=== PATIENT | female | born 1980 | race Two or more races ===

== ENCOUNTER 2017-01-22 09:15 | Day surgery (SDC) | payer OTHER ==
[~2017-01-22] VITALS: Ht 170.2 cm; Wt 73.5 kg
[~2017-01-22 09:15] MED LIST: CARI350T14 PO; DIPH50CA26 PO; IBUP200T48 PO; IBUP400T PO; MULT80TA PO; NO MEDS PER PT; OMEG92TA PO; OXYC-302 PO; PREN-3 PO; VALG450T PO
[2017-01-22] MEDS ORDERED: LACTATED RINGERS 1,000 ML IV SCH (10:10)
[2017-01-22 10:33] VITALS: BP 106/70
[2017-01-22] MEDS ORDERED: MISOPROSTOL 200 MCG TABLET ONE (10:55)
[2017-01-22] MEDS ORDERED: METHYLERGONOVINE 0.2 MG/ML IM ONE (10:55)
[2017-01-22] MEDS ORDERED: OXYTOCIN 10 UNITS/ML, 1ML ONE (10:55)
[2017-01-22] MEDS ORDERED: SCOPOLAMINE PATCH, 1.5MG PATCH.TD72 TD ONE (10:57)
[2017-01-22] MEDS ORDERED: MIDAZOLAM 1 MG/ML, 2ML ONE (11:15)
[2017-01-22] MEDS ORDERED: FENTANYL PF 250 MCG/5ML ONE (11:15)
[2017-01-22] MEDS ORDERED: DEXAMETHASONE 4 MG/ML, 1ML ONE (11:19)
[2017-01-22] MEDS ORDERED: PROPOFOL 10 MG/ML, 20ML ONE (11:19)
[2017-01-22] MEDS ORDERED: ONDANSETRON 2MG/ML, 2ML ONE (11:19)
[2017-01-22] MEDS ORDERED: FENTANYL PF 100 MCG/2ML IV PRN (12:00)
[2017-01-22] MEDS ORDERED: ONDANSETRON 2MG/ML, 2ML IVPush PRN (12:00)
[2017-01-22] MEDS ORDERED: MIDAZOLAM 1 MG/ML, 2ML IV PRN (12:00)
[2017-01-22] MEDS ORDERED: HYDROcodone/APAP 7.5-325MG/15ML UDC PO PRN (12:00)
[2017-01-22] MEDS ORDERED: HYDROmorphone 1 MG/ML, 1ML IV PRN (12:00)
[2017-01-22] MEDS ORDERED: OXYcodone 5 MG/5 ML ORAL.SOL UDC PO PRN (12:00)
[2017-01-22] MEDS ORDERED: ACETAMINOPHEN 325 MG TABLET PO PRN (12:00)
[2017-01-22] MEDS ORDERED: MEPERIDINE/PF 25MG/0.5ML IVPush PRN (12:00)
[2017-01-22] MEDS ORDERED: PROMETHAZINE 25 MG/ML, 1ML IV PRN (12:00)
[2017-01-22] MEDS ORDERED: ACETAMINOPHEN 650 MG/20.3 ML UDC ONE (12:03)
[2017-01-22] MEDS ORDERED: ACETAMINOPHEN 325 MG TABLET ONE (12:03)
== END 2017-01-22 13:15 | disposition home or self-care (01) ==
LOC: OUT 09:15
PROVIDERS: ATTEND Specialist
DX: O02.1 Missed abortion (principal); Z3A.01 Less than 8 weeks gestation of pregnancy; Z80.9 Family history of malignant neoplasm, unspecified
CPT/HCPCS: 36415; 59820; 85014; 85018; 86850; 86900; 88305; J1100; J2250; J2405; J2704; J3010; J7120; J2210; J2590

== ENCOUNTER 2017-07-15 00:41 | Observation (INO) | payer OTHER ==
[~2017-07-15] VITALS: Ht 170.2 cm; Wt 75.0 kg
[~2017-07-15 00:41] MED LIST changes: +IBUP-1221 PO; -IBUP400T PO
[2017-07-15 01:26] LABS: HEMOGLOBIN 12.6 g/dL (11.7-16.4); WHITE BLOOD COUNT 11.6 x10^3/uL (3.4-10)
[2017-07-15] MEDS ORDERED: LACTATED RINGERS 1,000 ML IVBOLUS ONE (01:30)
[2017-07-15 01:38] VITALS: BP 130/79
== END 2017-07-15 17:52 | disposition home or self-care (01) ==
LOC: LDOP 00:41 → EDIP 05:32 → LDIP 05:47
PROVIDERS: ADMIT Obstetrics & Gynecology; ATTEND Obstetrics & Gynecology
DX: O44.52 Low lying placenta with hemorrhage, second trimester (principal); O09.522 Supervision of elderly multigravida, second trimester; Z3A.20 20 weeks gestation of pregnancy
CPT/HCPCS: 36415; 59025; 76770; 76805; 81001; 85025; 86850; 86900; 96360; 96361; 99211; G0378; J7120; P9612; G0463

== ENCOUNTER 2017-09-29 15:27 | Outpatient (CLI) | payer OTHER ==
[~2017-09-29] VITALS: Ht 170.2 cm; Wt 78.6 kg
[~2017-09-29 15:27] MED LIST changes: -IBUP200T48 PO; +IBUP200T49 PO
== END 2017-09-29 18:30 | disposition home or self-care (01) ==
LOC: LDOP 15:27
PROVIDERS: ATTEND Obstetrics & Gynecology
DX: O09.523 Supervision of elderly multigravida, third trimester (principal); O36.8130 Decreased fetal movements, third trimester, not applicable or unspecified; Z3A.00 Weeks of gestation of pregnancy not specified
CPT/HCPCS: 59025; 76819; 99211; G0463

== ENCOUNTER 2017-11-23 06:21 | Inpatient (IN) | payer OTHER ==
[~2017-11-23] VITALS: Ht 170.2 cm; Wt 78.1 kg
[2017-11-23] MEDS ORDERED: OXYTOCIN 30U/ 0.9% NaCL 500ML 500 ML IV PRN (06:25)
[2017-11-23] MEDS ORDERED: D5%-LACTATED RINGERS 1,000 ML IV SCH (06:25)
[2017-11-23] MEDS ORDERED: OXYTOCIN 30U/ 0.9% NaCL 500ML 500 ML IV ONE (06:25)
[2017-11-23] MEDS ORDERED: FENTANYL PF 100 MCG/2ML IV PRN (06:30)
[2017-11-23] MEDS ORDERED: MISOPROSTOL 25 MCG TABLET VG PRN (06:30)
[2017-11-23] MEDS ORDERED: ONDANSETRON 2MG/ML, 2ML IVPush PRN (06:30)
[2017-11-23] MEDS ORDERED: FENTANYL PF 100 MCG/2ML IVPush PRN (06:30)
[2017-11-23] MEDS ORDERED: ALUMINUM/MAG/SIMETHICONE 30 ML UDC PO PRN (06:30)
[2017-11-23 06:34] VITALS: BP 125/75
[2017-11-23 06:54] LABS: BASOPHILS # (AUTO) 0.03 x10^3/uL (0-0.1); BASOPHILS % (AUTO) 1 % (0-1); EOSINOPHILS # (AUTO) 0.06 x10^3/uL (0-0.4); EOSINOPHILS % (AUTO) 1 % (1-7); LYMPHOCYTES # (AUTO) 2.12 x10^3/uL (1-3.4); LYMPHOCYTES % (AUTO) 29 % (22-44); MD NO; MEAN CORPUSCULAR HEMOGLOBIN 32.9 pg (27.0-34.8); MEAN CORPUSCULAR HGB CONC 34.6 g/dL (32.4-35.8); MEAN CORPUSCULAR VOLUME 95.1 fL (80-100); MEAN PLATELET VOLUME 8.8 fL (7.4-10.4); MONOCYTES # (AUTO) 0.48 x10^3/uL (0.2-0.8); MONOCYTES % (AUTO) 7 % (2-9); NEUTROPHILS # (AUTO) 4.59 x10^3/uL (1.8-6.8); NEUTROPHILS % (AUTO) 63 % (42-75); PLATELET COUNT 165 x10^3/uL (130-400); RED BLOOD COUNT 4.16 x10^6/uL (3.82-5.3); RED CELL DISTRIBUTION WIDTH 13.1 % (9.6-15.2)
[2017-11-23] MEDS: LACTATED RINGERS 1,000 ML IV SCH ×4 (06:57→19:28)
[2017-11-23] MEDS ORDERED: OXYTOCIN 30U/ 0.9% NaCL 500ML 500 ML ONE ×2 (07:00→22:01)
[2017-11-23] MEDS ORDERED: MISOPROSTOL 25 MCG TABLET ONE (07:00)
[2017-11-23] MEDS ORDERED: NEWBORN KIT ONE (07:30)
[2017-11-23] MEDS ORDERED: FENTANYL PF 100 MCG/2ML ONE (15:04)
[2017-11-23] MEDS ORDERED: FENTANYL/BUPIV./NS/PF 250 ML EPIDCONT SCH (18:33)
[2017-11-23] MEDS ORDERED: FENTANYL/BUPIV./NS/PF 250 ML EPIDCONT ONE (18:35)
[2017-11-23] MEDS ORDERED: BUPIVACAINE/PF 0.25% ONE (18:35)
[2017-11-23] MEDS ORDERED: EPHEDRINE 50 MG/ML, 1ML IVPush PRN (19:00)
[2017-11-23] MEDS ORDERED: LACTATED RINGERS 1,000 ML IVBOLUS PRN (19:00)
[2017-11-23] MEDS ORDERED: NALOXONE 0.4 MG/ML, 1ML IVPush PRN (19:00)
[2017-11-23] MEDS ORDERED: MISOPROSTOL 200 MCG TABLET ONE (21:47)
[2017-11-23] MEDS ORDERED: METHYLERGONOVINE 0.2 MG/ML IM ONE (21:50)
[2017-11-23] MEDS ORDERED: TRANEXAMIC ACID 1,500 MG in SODIUM CHLORIDE 0.9% 100 ML IV STA (21:54)
[2017-11-23] MEDS ORDERED: CEFAZOLIN PMX 1GM/50ML 50 ML ONE (21:54)
[2017-11-23] MEDS: CEFAZOLIN PMX 2GM/50ML 50 ML IVPB SCH (22:00)
[2017-11-23] MEDS ORDERED: PROMETHAZINE 25 MG/ML, 1ML ONE (22:43)
[2017-11-23 23:13] LABS: BASOPHILS # (AUTO) 0.05 x10^3/uL (0-0.1); BASOPHILS % (AUTO) 0 % (0-1); EOSINOPHILS # (AUTO) 0.03 x10^3/uL (0-0.4); EOSINOPHILS % (AUTO) 0 % (1-7); LYMPHOCYTES # (AUTO) 2.26 x10^3/uL (1-3.4); LYMPHOCYTES % (AUTO) 14 % (22-44); MD NO; MEAN CORPUSCULAR HEMOGLOBIN 32.1 pg (27.0-34.8); MEAN CORPUSCULAR HGB CONC 33.9 g/dL (32.4-35.8); MEAN CORPUSCULAR VOLUME 94.8 fL (80-100); MEAN PLATELET VOLUME 8.9 fL (7.4-10.4); MONOCYTES # (AUTO) 0.65 x10^3/uL (0.2-0.8); MONOCYTES % (AUTO) 4 % (2-9); NEUTROPHILS # (AUTO) 13.03 x10^3/uL (1.8-6.8); NEUTROPHILS % (AUTO) 81 % (42-75); PLATELET COUNT 148 x10^3/uL (130-400); RED BLOOD COUNT 3.72 x10^6/uL (3.82-5.3); RED CELL DISTRIBUTION WIDTH 12.9 % (9.6-15.2)
[2017-11-23] MEDS ORDERED: OXYTOCIN 30U/ 0.9% NaCL 500ML 500 ML IV SCH (23:38)
[2017-11-23 23:41] LABS: PROTIME 9.7 Seconds (9.6-11.5)
[2017-11-23 23:44] LABS: D-DIMER (DIC) 10.27 ug/mlFEU (0.00-0.52)
[2017-11-24] MEDS ORDERED: HYDROcodone/APAP 5/325 TABLET PO PRN ×2
[2017-11-24] MEDS ORDERED: MISOPROSTOL 200 MCG TABLET PR ONE
[2017-11-24] MEDS ORDERED: ACETAMINOPHEN 325 MG TABLET PO PRN
[2017-11-24] MEDS ORDERED: PROMETHAZINE 25 MG/ML, 1ML IM ONE
[2017-11-24] MEDS ORDERED: OXYcodone/APAP 5/325MG TABLET PO PRN ×2
[2017-11-24] MEDS ORDERED: OXYcodone IR 5MG TABLET PO PRN
[2017-11-24] MEDS ORDERED: ONDANSETRON 2MG/ML, 2ML IV PRN
[2017-11-24] MEDS: LACTATED RINGERS 1,000 ML IV SCH (00:44)
[2017-11-24] MEDS ORDERED: IBUPROFEN 600 MG TABLET ONE (01:59)
[2017-11-24] MEDS: IBUPROFEN 600 MG TABLET PO PRN ×3 (02:01→16:55)
[2017-11-24] MEDS ORDERED: DIPHENOXYLATE/ATROPINE TABLET ONE (02:12)
[2017-11-24] MEDS ORDERED: DIPHENOXYLATE/ATROPINE TABLET PO PRN (02:30)
[2017-11-24 02:54] LABS: MEAN CORPUSCULAR HEMOGLOBIN 32.3 pg (27.0-34.8); MEAN CORPUSCULAR HGB CONC 34.2 g/dL (32.4-35.8); MEAN CORPUSCULAR VOLUME 94.3 fL (80-100); MEAN PLATELET VOLUME 8.6 fL (7.4-10.4); PLATELET COUNT 151 x10^3/uL (130-400); RED BLOOD COUNT 3.57 x10^6/uL (3.82-5.3); RED CELL DISTRIBUTION WIDTH 13.3 % (9.6-15.2)
[2017-11-24 03:17] LABS: BASOPHILS # (AUTO) 0.02 x10^3/uL (0-0.1); BASOPHILS % (AUTO) 0 % (0-1); EOSINOPHILS # (AUTO) 0.01 x10^3/uL (0-0.4); EOSINOPHILS % (AUTO) 0 % (1-7); LYMPHOCYTES # (AUTO) 0.94 x10^3/uL (1-3.4); LYMPHOCYTES % (AUTO) 5 % (22-44); MD SCAN; MONOCYTES # (AUTO) 0.55 x10^3/uL (0.2-0.8); MONOCYTES % (AUTO) 3 % (2-9); NEUTROPHILS # (AUTO) 18.05 x10^3/uL (1.8-6.8); NEUTROPHILS % (AUTO) 92 % (42-75)
[2017-11-24] MEDS ORDERED: CARBOPROST TROMETHAMINE 250 MCG/ML, 1ML IM ONE ×2 (04:00)
[2017-11-24] MEDS ORDERED: METHYLERGONOVINE 0.2 MG/ML IM ONE ×2 (04:00)
[2017-11-24 07:56] VITALS: BP 125/81
[2017-11-24] MEDS: DOCUSATE 100 MG CAPSULE PO PRN (09:27)
[2017-11-24] MEDS: PRENATAL VIT/IRON/FA 1 EACH TABLET PO SCH (09:28)
[2017-11-24] MEDS: OXYcodone IR 5MG TABLET PO PRN ×2 (09:33→16:56)
[2017-11-24] MEDS: CEFAZOLIN PMX 2GM/50ML 50 ML IVPB SCH (09:45)
[2017-11-24 13:00] VITALS: BP 104/51
[2017-11-24 20:24] VITALS: BP 91/54
[2017-11-25] MEDS: IBUPROFEN 600 MG TABLET PO PRN ×2 (00:54→07:47)
[2017-11-25] MEDS: DOCUSATE 100 MG CAPSULE PO PRN ×2 (00:55→07:47)
[2017-11-25] MEDS: OXYcodone IR 5MG TABLET PO PRN ×2 (00:55→05:49)
[2017-11-25 06:08] LABS: MEAN CORPUSCULAR HEMOGLOBIN 32.5 pg (27.0-34.8); MEAN CORPUSCULAR HGB CONC 33.7 g/dL (32.4-35.8); MEAN CORPUSCULAR VOLUME 96.6 fL (80-100); MEAN PLATELET VOLUME 8.4 fL (7.4-10.4); PLATELET COUNT 126 x10^3/uL (130-400); RED BLOOD COUNT 2.33 x10^6/uL (3.82-5.3); RED CELL DISTRIBUTION WIDTH 13.4 % (9.6-15.2)
[2017-11-25 06:20] VITALS: BP 115/68
[2017-11-25 06:43] LABS: BASOPHILS # (AUTO) 0.02 x10^3/uL (0-0.1); BASOPHILS % (AUTO) 0 % (0-1); EOSINOPHILS # (AUTO) 0.08 x10^3/uL (0-0.4); EOSINOPHILS % (AUTO) 1 % (1-7); LYMPHOCYTES # (AUTO) 2.17 x10^3/uL (1-3.4); LYMPHOCYTES % (AUTO) 28 % (22-44); MD SCAN; MONOCYTES # (AUTO) 0.45 x10^3/uL (0.2-0.8); MONOCYTES % (AUTO) 6 % (2-9); NEUTROPHILS # (AUTO) 5.18 x10^3/uL (1.8-6.8); NEUTROPHILS % (AUTO) 66 % (42-75)
[2017-11-25] MEDS: PRENATAL VIT/IRON/FA 1 EACH TABLET PO SCH (07:47)
[2017-11-25 08:00] VITALS: BP 120/78
[2017-11-25] MEDS ORDERED: IBUP-1222 PO (10:45)
[2017-11-25] MEDS ORDERED: DOCU-131 PO (10:45)
[2017-11-25] MEDS ORDERED: OXYC-302 PO (10:45)
[2017-11-25] MEDS ORDERED: FERR325T5 PO (10:47)
== END 2017-11-25 11:55 | disposition home or self-care (01) | DRG 775 ==
LOC: LDIP 06:21 → 2NW 11-24 01:59
PROVIDERS: ADMIT Obstetrics & Gynecology; ATTEND Obstetrics & Gynecology
PROC: 10907ZC Drainage of Amniotic Fluid, Therapeutic from Products of Conception, Via Natural or Artificial Opening (ICD-10-PCS; principal; 2017-11-23)
PROC: 10E0XZZ Delivery of Products of Conception, External Approach (ICD-10-PCS; 2017-11-23)
PROC: 3E033VJ Introduction of Other Hormone into Peripheral Vein, Percutaneous Approach (ICD-10-PCS; 2017-11-23)
PROC: 3E0R3BZ Introduction of Anesthetic Agent into Spinal Canal, Percutaneous Approach (ICD-10-PCS; 2017-11-23)
PROC: 00HU33Z Insertion of Infusion Device into Spinal Canal, Percutaneous Approach (ICD-10-PCS; 2017-11-23)
DX: O24.420 Gestational diabetes mellitus in childbirth, diet controlled (principal); O26.93 Pregnancy related conditions, unspecified, third trimester; Z37.0 Single live birth; O62.2 Other uterine inertia; S30.814A Abrasion of vagina and vulva, initial encounter; Z3A.39 39 weeks gestation of pregnancy; Z87.891 Personal history of nicotine dependence
CPT/HCPCS: 36415; 82962; 85025; 85049; 85379; 85384; 85610; 85730; 86850; 86900; 86923; J0690; J3010; J2210; J2590; J7120

== ENCOUNTER → 2018-12-23 | Outpatient (CLI) | payer BC, OTHER ==
[~2018-12-23] MED LIST changes: +DOCU-131 PO; +FERR325T5 PO; +IBUP-1222 PO
== END | disposition home or self-care (01) ==
LOC: CFH 13:39
PROVIDERS: ATTEND Obstetrics & Gynecology
DX: N83.02 Follicular cyst of left ovary (principal)
CPT/HCPCS: 76856

== ENCOUNTER 2020-01-10 10:49 | Outpatient (CLI) | payer BC ==
[2020-01-10 11:56] LABS: BASOPHILS # (AUTO) 0.03 x10^3/uL (0-0.1); BASOPHILS % (AUTO) 0 % (0-1); EOSINOPHILS # (AUTO) 0.18 x10^3/uL (0-0.4); EOSINOPHILS % (AUTO) 2 % (1-7); LYMPHOCYTES # (AUTO) 2.92 x10^3/uL (1-3.4); LYMPHOCYTES % (AUTO) 37 % (22-44); MD NO; MEAN CORPUSCULAR VOLUME 93.9 fL (80-100); MEAN PLATELET VOLUME 7.3 fL (7.4-10.4); MONOCYTES # (AUTO) 0.33 x10^3/uL (0.2-0.8); MONOCYTES % (AUTO) 4 % (2-9); NEUTROPHILS # (AUTO) 4.36 x10^3/uL (1.8-6.8); NEUTROPHILS % (AUTO) 56 % (42-75); PLATELET COUNT 341 x10^3/uL (130-400); RED BLOOD COUNT 4.88 x10^6/uL (3.82-5.3); RED CELL DISTRIBUTION WIDTH 12.3 % (9.6-15.2)
== END 2020-01-10 23:59 | disposition home or self-care (01) ==
LOC: STAR 10:49
PROVIDERS: ATTEND Obstetrics & Gynecology
DX: Z01.818 Encounter for other preprocedural examination (principal); Z11.59 Encounter for screening for other viral diseases; R19.09 Other intra-abdominal and pelvic swelling, mass and lump
CPT/HCPCS: 36415; 84703; 85025; U0001

== ENCOUNTER 2020-01-15 05:48 | Day surgery (SDC) | payer BC ==
[~2020-01-15] VITALS: Ht 170.2 cm; Wt 79.3 kg
[2020-01-15 06:42] VITALS: BP 103/69
[2020-01-15] MEDS ORDERED: LACTATED RINGERS 1,000 ML IV SCH (06:44)
[2020-01-15] MEDS ORDERED: CHLORHEXIDINE 15 ML UDC ONE (06:46)
[2020-01-15] MEDS ORDERED: ACETAMINOPHEN 500 MG TABLET PO STA (06:57)
[2020-01-15] MEDS ORDERED: BUPIVACAINE/PF-EPI 0.25% 1:200K ONE (07:00)
[2020-01-15] MEDS ORDERED: SILVER NITRATE STICK TP ONE (07:00)
[2020-01-15] MEDS ORDERED: CHLORHEXIDINE 15 ML UDC MM ONE (07:00)
[2020-01-15] MEDS ORDERED: FENTANYL PF 100 MCG/2ML ONE (07:03)
[2020-01-15] MEDS ORDERED: MIDAZOLAM 1 MG/ML, 2ML ONE (07:03)
[2020-01-15 07:09] LABS: HCG UR SG 1.022 (1.003-1.030)
[2020-01-15] MEDS ORDERED: DEXAMETHASONE 4 MG/ML, 1ML ONE (07:19)
[2020-01-15] MEDS ORDERED: SUCCINYLCHOLINE 20 MG/ML, 10ML ONE (07:19)
[2020-01-15] MEDS ORDERED: ONDANSETRON 2MG/ML, 2ML ONE (07:19)
[2020-01-15] MEDS ORDERED: PROPOFOL 10 MG/ML, 20ML ONE (07:19)
[2020-01-15] MEDS ORDERED: LIDOCAINE-MPF 2% ,5ML ONE (07:26)
[2020-01-15] MEDS ORDERED: OXYcodone 5 MG/5 ML ORAL.SOL UDC PO PRN (07:30)
[2020-01-15] MEDS ORDERED: PROMETHAZINE 25 MG/ML, 1ML IVPush PRN (07:30)
[2020-01-15] MEDS ORDERED: hydrALAzine 20 MG/ML, 1ML IV PRN (07:30)
[2020-01-15] MEDS ORDERED: FENTANYL PF 100 MCG/2ML IV PRN (07:30)
[2020-01-15] MEDS ORDERED: LABETALOL 5MG/ML, 20ML IV PRN (07:30)
[2020-01-15] MEDS ORDERED: EPHEDRINE 50 MG/ML, 1ML IVPush PRN (07:30)
[2020-01-15] MEDS ORDERED: HYDROmorphone 1 MG/ML, 1ML INJ IVPush PRN (07:30)
[2020-01-15] MEDS ORDERED: ONDANSETRON 2MG/ML, 2ML IVPush PRN (07:30)
[2020-01-15] MEDS ORDERED: MEPERIDINE/PF 25MG/0.5ML IVPush PRN (07:30)
[2020-01-15] MEDS ORDERED: CEFAZOLIN 1,000 MG ONE (07:31)
[2020-01-15] MEDS ORDERED: KETOROLAC 30 MG/1 ML ONE (07:39)
== END 2020-01-15 11:11 | disposition home or self-care (01) ==
LOC: OUT 05:48
PROVIDERS: ATTEND Obstetrics & Gynecology
DX: N92.6 Irregular menstruation, unspecified (principal); Z11.59 Encounter for screening for other viral diseases; N84.0 Polyp of corpus uteri; G47.33 Obstructive sleep apnea (adult) (pediatric); Z79.899 Other long term (current) drug therapy; Z98.51 Tubal ligation status
CPT/HCPCS: 36415; 58558; 81025; 86850; 86900; 88305; J0330; J0690; J1100; J1885; J2250; J2405; J2704; J3010; J7120; U0001

== ENCOUNTER → 2021-01-09 | Outpatient (CLI) | payer BC ==
[~2021-01-09] MED LIST changes: +CARI-389 PO; -CARI350T14 PO; -OXYC-302 PO; +OXYC1TAB14 PO
== END | disposition home or self-care (01) ==
LOC: CFH 10:54
PROVIDERS: ATTEND Family Medicine
DX: N88.8 Other specified noninflammatory disorders of cervix uteri (principal); R10.32 Left lower quadrant pain
CPT/HCPCS: 76830